=== PATIENT | male | born 1940 | race Caucasian/White ===

== ENCOUNTER 2019-08-18 08:03 | Day surgery (SDC) | payer OTHER, MEDICARE ==
[~2019-08-18] VITALS: Ht 182.9 cm; Wt 106.1 kg
[2019-08-18] MEDS ORDERED: Prinivil10 MG PO (09:08)
[2019-08-18] MEDS ORDERED: OMEP20ER PO (09:08)
[2019-08-18] MEDS ORDERED: ASPIR 8181 M1 PO (09:08)
[2019-08-18] MEDS ORDERED: ALLO300 PO (09:08)
--- NOTE | 2019-08-18 10:26 | NUR ---
08/18/19 Maria Antonia6 Suzy Covarrubias T/O AT [id number]
== END 2019-08-18 09:57 | disposition home or self-care (01) ==
LOC: ORSCSDS 08:03
PROVIDERS: Anesthesiology
PROC: 3E0R33Z Introduction of Anti-inflammatory into Spinal Canal, Percutaneous Approach (ICD-10-PCS; principal; 2019-08-18 09:30)
DX: M51.16 Intervertebral disc disorders with radiculopathy, lumbar region (principal); I10 Essential (primary) hypertension; E66.9 Obesity, unspecified; Z68.32 Body mass index [BMI] 32.0-32.9, adult; Z79.899 Other long term (current) drug therapy
CPT/HCPCS: J1040